=== PATIENT | male | born 1995 | race African-American/Black ===

== ENCOUNTER 2016-09-22 00:45 | Emergency (ER) | payer SELFPAY ==
[~2016-09-22] VITALS: Ht 167.6 cm; Wt 75.0 kg
[~2016-09-22 00:45] MED LIST: ALBU6.7H IH
[2016-09-22] MEDS ORDERED: ALBUTEROL (0.083%) 2.5MG/3ML NEB HHN STA (01:56)
[2016-09-22] MEDS ORDERED: IPRATROPIUM BROMIDE (0.02%) 0.5MG/2.5ML NEB HHN STA (01:56)
[2016-09-22] MEDS ORDERED: PREDNISONE 20MG TABLET PO STA (01:56)
[2016-09-22 03:20] VITALS: BP 118/72
== END 2016-09-22 03:18 | disposition home or self-care (01) ==
LOC: ER 00:46
DX: J45.901 Unspecified asthma with (acute) exacerbation (principal)
CPT/HCPCS: 94640; 99283; J7512; J7611; Z7610

== ENCOUNTER 2020-05-25 11:57 | Emergency (ER) | payer MEDICAID, OTHER ==
[~2020-05-25] VITALS: Ht 177.8 cm; Wt 98.0 kg
[~2020-05-25 11:57] MED LIST changes: -ALBU6.7H IH; +ALBU6.7H11 IH
[2020-05-25] MEDS ORDERED: ALBUTEROL (0.083%) 2.5MG/3ML NEB HHN STA ×2 (12:31→13:44)
[2020-05-25] MEDS ORDERED: IPRATROPIUM BROMIDE (0.02%) 0.5MG/2.5ML NEB HHN STA ×2 (12:31→13:44)
[2020-05-25] MEDS ORDERED: METHYLPREDNISOLONE SOD SUCC 125 MG/2 ML VIAL IM ONE (12:45)
[2020-05-25 14:25] VITALS: BP 129/78
== END 2020-05-25 14:26 | disposition home or self-care (01) ==
LOC: ER 11:57
DX: J45.901 Unspecified asthma with (acute) exacerbation (principal)
CPT/HCPCS: 71045; 94640; 96372; 99283; J2930; Z7610